=== PATIENT | female | born 1935 | race Caucasian/White ===

== ENCOUNTER 2017-03-30 12:41 | Emergency (ER) | payer OTHER ==
[~2017-03-30] VITALS: Ht 162.6 cm; Wt 59.9 kg
[~2017-03-30 12:41] MED LIST: ADULT LOW DOSE81 MG PO; ASPIRIN EC81 M1 PO; ASPIRIN325 PO; ATORVASTATIN CA10 MG PO; BENICAR HCT 401 EAC1 PO; CALCIUM 500 +1 EAC5 PO; CALCIUM PO; CARVEDILOL12.5 MG PO; CARVEDILOL25 MG; CARVEDILOL25 MG PO; CLONAZEPAM 1 MG1 M1 NG; COLACE 100 MG100 MG PO; FISH OIL 1,001000 MG PO; MULTIVITAMINS PO; NORVASC 5 MG TAB5 MG PO; NORVASC5 MG PO; PRAVACHOL 20 MG20 M1; SIMVASTATIN80 MG PO; VESICARE 5 MG TA5 M1 PO; VITAMIN D1000 UNI1 PO; VITAMINC500 PO
[2017-03-30 13:37] LABS: HEMOGLOBIN 13.9 gm/dL (12.0-15.0); MCH 29.8 pg (26.0-34.0); MCHC 34.7 g/dL (28.0-37.0); MCV 85.7 fL (80.0-100.0); PLATELET COUNT 161 thou/uL (150-400); RBC 4.67 mil/uL (4.20-5.00); RDW 15.4 % (10.5-14.5); WBC 10.6 thou/uL (4.0-11.0)
[2017-03-30 13:39] LABS: MANUAL DIFF YES
[2017-03-30 14:09] LABS: ABSOLUTE NEUTROPHILS 9.1 thou/uL (1.4-8.2); TOTAL CELL COUNT 100
[2017-03-30 14:29] LABS: CALCIUM 8.8 mg/dL (8.5-10.1); CREATININE 1.2 mg/dL (0.6-1.0); POTASSIUM 3.3 mmol/L (3.5-5.1)
[2017-03-30 14:35] LABS: ALBUMIN 2.6 g/dL (3.4-5.0); DIRECT BILIRUBIN 0.3 mg/dL (<0.1-0.3); TOTAL BILIRUBIN 0.8 mg/dL (<0.1-1.0); TOTAL PROTEIN 6.6 g/dL (6.4-8.2)
[2017-03-30] MEDS ORDERED: ZOFRAN ODT4 MG PO (14:57)
[2017-03-30 15:08] LABS: URINE BILIRUBIN NEGATIVE (Negative); URINE BLOOD 2+ (Negative); URINE COLOR YELLOW; URINE GLUCOSE-RANDOM* NEGATIVE (Negative); URINE KETONES TRACE (Negative); URINE NITRITE POSITIVE (Negative); URINE PROTEIN (DIPSTICK) 2+ (Negative); URINE UROBILINOGEN 0.2 E.U./dl (0.2-1.0)
[2017-03-30 15:14] LABS: SQUAMOUS >10 Many /LPF (0-3)
[2017-03-30 15:15] LABS: CASTS None Seen /LPF (None Seen); URINE RBC 0-2 Rare /HPF (0-2); URINE WBC >25 Many /HPF (0-5)
[2017-03-30 15:16] LABS: BACTERIA >30 Many /HPF (None Seen); CRYSTALS None Seen /LPF (None Seen)
[2017-03-30] MEDS ORDERED: MACROBID 100 M100 M1 PO (15:18)
== END 2017-03-30 16:46 | disposition home or self-care (01) ==
LOC: ER 12:41
PROVIDERS: Emergency Medicine
DX: N39.0 Urinary tract infection, site not specified (principal); E87.6 Hypokalemia; R53.83 Other fatigue; I10 Essential (primary) hypertension; E78.00 Pure hypercholesterolemia, unspecified; I25.10 Atherosclerotic heart disease of native coronary artery without angina pectoris; Z88.8 Allergy status to other drugs, medicaments and biological substances; Z87.891 Personal history of nicotine dependence

== ENCOUNTER 2019-02-18 10:55 | Emergency (ER) | payer OTHER ==
[~2019-02-18] VITALS: Ht 160 cm; Wt 61.2 kg
[~2019-02-18 10:55] MED LIST changes: +MACROBID 100 M100 M1 PO; +ZOFRAN ODT4 MG PO
[2019-02-18] MEDS ORDERED: LEXAPRO 10 MG T10 M1 PO (11:02)
[2019-02-18] MEDS ORDERED: LIVALO2 MG PO (11:03)
[2019-02-18 12:34] VITALS: BP 157/71
== END 2019-02-18 12:35 | disposition home or self-care (01) ==
LOC: ER 10:55
DX: S00.03XA Contusion of scalp, initial encounter (principal); I10 Essential (primary) hypertension; E78.00 Pure hypercholesterolemia, unspecified; I25.10 Atherosclerotic heart disease of native coronary artery without angina pectoris; I73.9 Peripheral vascular disease, unspecified; E78.5 Hyperlipidemia, unspecified; Z87.891 Personal history of nicotine dependence; Z88.8 Allergy status to other drugs, medicaments and biological substances; W01.198A Fall on same level from slipping, tripping and stumbling with subsequent striking against other object, initial encounter; Y92.009 Unspecified place in unspecified non-institutional (private) residence as the place of occurrence of the external cause; Y93.89 Activity, other specified; Y99.8 Other external cause status

== ENCOUNTER 2019-06-16 13:57 | Emergency (ER) | payer OTHER ==
[~2019-06-16] VITALS: Ht 162.6 cm; Wt 61.2 kg
[~2019-06-16 13:57] MED LIST changes: +LEXAPRO 10 MG T10 M1 PO; +LIVALO2 MG PO
[2019-06-16] MEDS ORDERED: PROMETH-CODEIN 65 ML PO (15:02)
[2019-06-16] MEDS ORDERED: TAMIFLU75 MG PO (15:02)
[2019-06-16 15:25] VITALS: BP 141/61
== END 2019-06-16 15:26 | disposition home or self-care (01) ==
LOC: ER 13:57
DX: J11.1 Influenza due to unidentified influenza virus with other respiratory manifestations (principal); I10 Essential (primary) hypertension; I25.10 Atherosclerotic heart disease of native coronary artery without angina pectoris; I73.9 Peripheral vascular disease, unspecified; E78.00 Pure hypercholesterolemia, unspecified; Z87.891 Personal history of nicotine dependence; Z88.8 Allergy status to other drugs, medicaments and biological substances

== ENCOUNTER → 2020-02-24 | Outpatient (CLI) | payer OTHER ==
[~2020-02-24] MED LIST changes: +PROMETH-CODEIN 65 ML PO; +TAMIFLU75 MG PO
== END ==
LOC: SJCVCIMAG 11:01 → SJCVC 11:01
PROVIDERS: ATTEND Internal Medicine Cardiovascular Disease
DX: I65.23 Occlusion and stenosis of bilateral carotid arteries (principal); R94.31 Abnormal electrocardiogram [ECG] [EKG]; I45.10 Unspecified right bundle-branch block; R00.1 Bradycardia, unspecified; I25.10 Atherosclerotic heart disease of native coronary artery without angina pectoris; I10 Essential (primary) hypertension; E78.00 Pure hypercholesterolemia, unspecified; I70.1 Atherosclerosis of renal artery; Z79.899 Other long term (current) drug therapy; Z87.891 Personal history of nicotine dependence

== ENCOUNTER → 2020-04-06 | Outpatient (CLI) | payer OTHER | LOC: SJCVCIMAG 07:19 | PROVIDERS: ATTEND Internal Medicine Cardiovascular Disease | DX: I08.0 Rheumatic disorders of both mitral and aortic valves (principal); I10 Essential (primary) hypertension ==

== ENCOUNTER → 2021-03-07 | Outpatient (CLI) | payer OTHER | LOC: SJCVCIMAG 07:46 | PROVIDERS: ATTEND Internal Medicine Cardiovascular Disease | DX: R94.31 Abnormal electrocardiogram [ECG] [EKG] (principal); I65.23 Occlusion and stenosis of bilateral carotid arteries; I25.10 Atherosclerotic heart disease of native coronary artery without angina pectoris; I10 Essential (primary) hypertension; I77.9 Disorder of arteries and arterioles, unspecified; I70.1 Atherosclerosis of renal artery; E78.00 Pure hypercholesterolemia, unspecified; Z79.82 Long term (current) use of aspirin; Z79.899 Other long term (current) drug therapy; Z88.8 Allergy status to other drugs, medicaments and biological substances; Z72.89 Other problems related to lifestyle; Z87.891 Personal history of nicotine dependence ==